=== PATIENT | male | born 1955 | race Caucasian/White ===

== ENCOUNTER 2017-08-19 05:14 | Emergency (ER) | payer SELFPAY ==
--- NOTE | 2017-08-19 05:59 | ER Document Report ---
ED General - General Chief Complaint: Wound Infection Stated Complaint: FINGER PAIN Time Seen by Provider: 08/19/17 05:58 Notes: 61-year-old male. History of diabetes. Was working on a roof with some shingles. Scratched his third digit on the left hand several days ago. Has gotten increasingly swollen and painful. States that he has been able to sleep for the last 2 nights due to the throbbing pain. Last tetanus over 7 years ago. Swelling is mostly on the dorsum of the third finger of the left nondominant hand. Hurts to bend the finger at this time. TRAVEL OUTSIDE OF THE [place] IN LAST 30 DAYS: No - HPI Onset: Last week Onset/Duration: Gradual Severity: Mild Pain Level: 4 Associated symptoms: None - Related Data Allergies/Adverse Reactions: No Known Allergies Allergy (Unverified 08/19/17 05:47) Past Medical History - General Information source: Patient - Social History Smoking Status: Never Smoker Chew tobacco use (# tins/day): No Frequency of alcohol use: Social Drug Abuse: None Lives with: Family Family History: Reviewed & Not Pertinent Patient has suicidal ideation: No Patient has homicidal ideation: No - Past Medical History Cardiac Medical History: Reports: Hx Hypercholesterolemia, Hx Hypertension Endocrine Medical History: Reports: Hx Diabetes Mellitus Type 2 Renal/ Medical History: Denies: Hx Peritoneal Dialysis Malignancy Medical History: Reports None GI Medical History: Reports: None Musculoskeltal Medical History: Reports None Past Surgical History: Reports: Hx Cardiac Catheterization - 1 stent, Hx Orthopedic Surgery - hand, knees, neck Review of Systems - Review of Systems Constitutional: Chills. denies: Fever, Malaise Cardiovascular: denies: Chest pain, Palpitations, Heart racing Respiratory: denies: Cough, Hurts to breathe, Short of breath Musculoskeletal: See HPI Skin: See HPI Physical Exam - Vital signs Vitals: Temp Pulse Resp BP Pulse Ox 97.7 F 81 18 172/85 H 99 08/19/17 05:19 08/19/17 05:19 08/19/17 05:19 08/19/17 05:19 08/19/17 05:19 Interpretation: Hypertensive - General General appearance: Appears well, Alert - Respiratory Respiratory status: No respiratory distress Chest status: Nontender Breath sounds: Normal Chest palpation: Normal - Cardiovascular Rhythm: Regular Heart sounds: Normal auscultation Murmur: No - Extremities General upper extremity: Other - The third digit on the left hand appears to have a significant paronychial infection. There is no active drainage. The digit is moderately swollen. Flexion and extension produces pain. There is some discoloration at the distal aspect of the third finger on the dorsum where the skin has broken down. General lower extremity: Normal inspection, Nontender, Normal color, Normal ROM , Normal temperature, Normal weight bearing. No: Danica's sign - Skin Skin Temperature: Warm Skin Moisture: Dry Skin Color: Normal, Other - Skin breakdown and redness noted on the third digit of the left hand Course - Re-evaluation Re-evalutation: 08/19/17 06:40 Dr. Brennan with orthopedic surgery has evaluated the hand. Does not feel this represents a tenosynovitis at this time. Recommend simple I&D in the emergency department. We will get some basic labs in the event that this gets worse based on this patient's compromised immune system with diabetes. Will have a baseline for labs and will do I&D at this time. We will give first dose of IV antibiotics and will reassess. 08/19/17 07:07 Incision and drainage is performed. No significant complications. Digital block performed. Good anesthesia was obtained. Please see procedure note - Vital Signs Vital signs: Temp Pulse Resp BP Pulse Ox 97.7 F 81 18 172/85 H 99 08/19/17 05:19 08/19/17 05:19 08/19/17 05:19 08/19/17 05:19 08/19/17 05:19 - Laboratory Result Diagrams: 08/19/17 06:45 Laboratory results interpreted by me: 08/19/17 06:45 WBC 10.8 H RBC 3.89 L Hgb 12.0 L Hct 34.0 L Lymphocytes % 10.9 L Absolute Neutrophils 8.4 H Procedures - Incision and Drainage Left Finger 3rd digit Type: Simple, Single Anesthetic type: 1% Lidocaine Blade size: 11 I&D procedure: Betadine prep applied Incision Method: Incision made by scalpel Amount/type of drainage: 3 mL of purulent discharge Notes: 08/19/17 07:05 Small incision was made at the paronychial area and a elliptical incision. Approximately 3 mL of pus was obtained. No packing was applied Discharge - Discharge Clinical Impression: Acute paronychia of finger of left hand, Paronychia of finger of left hand Condition: Good Disposition: HOME, SELF-CARE Instructions: Antibiotic Ointment Protection (OM), Tetanus Immunization Given (OM), Prophylactic Antibiotic (OM), Paronychia (OM) Prescriptions: Amox Tr/Potassium Clavulanate [Augmentin 875-125 Tablet] 1 tab PO BID 7 Days # 14 tablet Hydrocodone/Acetaminophen [Gypsum 5-325 mg Tablet] 1 tab PO QID PRN 3 Days #12 tablet PRN Reason: Referrals: LAY BRENNAN MD [ACTIVE STAFF] - Follow up as needed
[2017-08-19] MEDS ORDERED: LIDOCAINE 1% INJ-PF (10 MG/ML) 30 ML SDV INJ ONE (06:22)
[2017-08-19] MEDS ORDERED: AMPICILLIN SOD/SULBACTAM 3 GM VIAL IV ONE (06:23)
[2017-08-19] MEDS ORDERED: HYDROCODONE/ACETAMINOPHEN 5-325 MG TABLET PO ONE (06:24)
[2017-08-19] MEDS ORDERED: DIPH/PERTUSS(ACELL)/TETANUS VAC/PF 0.5 ML SYR (>=10YO) IM ONE (06:41)
[2017-08-19 06:57] LABS: ABSOLUTE EOSINOPHILS # (AUTO) 0.2 10^3/uL (0.0-0.6); ABSOLUTE LYMPHOCYTES (AUTO) 1.2 10^3/uL (0.5-4.7); ABSOLUTE MONOCYTES (AUTO) 0.9 10^3/uL (0.1-1.4); ABSOLUTE NEUT (AUTO) 8.4 10^3/uL (1.7-8.2); BASOPHILS % (AUTO) 0.4 % (0-2); LYMPHOCYTES % (AUTO) 10.9 % (13-45); MEAN CORPUSCULAR HEMOGLOBIN 30.8 pg (27.0-33.4); MEAN CORPUSCULAR HGB CONC 35.3 g/dL (32.0-36.0); MEAN CORPUSCULAR VOLUME 87 fl (80-97); MONOCYTES % (AUTO) 8.7 % (3-13); PLATELET COUNT 212 10^3/uL (150-450); RED BLOOD COUNT 3.89 10^6/uL (4.35-5.55); RED CELL DISTRIBUTION WIDTH 13.4 % (11.5-14.0); TOTAL CELLS COUNTED % (AUTO) 100 %; WHITE BLOOD COUNT 10.8 10^3/uL (4.0-10.5)
--- NOTE | 2017-08-19 07:00 | PDOC CONSULTATION ---
Consultation Consult Date: 08/19/17 Consult reason:: Left long finger abscess History of Present Illness History of Present Illness: CASTILLO LYNN is a 61 year old male who presents with a left long finger abscess over the dorsum of the distal phalanx that he attributes to putting on reymundo shingles. Past Medical History Cardiac Medical History: Reports: Hyperlipidema, Hypertension Endocrine Medical History: Reports: Diabetes Mellitus Type 2 Malignancy Medical History: Reports: None GI Medical History: Reports: None Musculoskeltal Medical History: Reports: None Past Surgical History Past Surgical History: Reports: Cardiac Catheterization - 1 stent, Orthopedic Surgery - hand, knees, neck Social History Lives with: Family Smoking Status: Never Smoker Family History Family History: Reviewed & Not Pertinent Parental Family History Reviewed: No Children Family History Reviewed: No Sibling(s) Family History Reviewed.: No Medication/Allergy Allergies/Adverse Reactions: No Known Allergies Allergy (Unverified 08/19/17 05:47) Review of Systems All systems: as per H Physical Exam Vital Signs: Temp Pulse Resp BP Pulse Ox 36.5 C 81 18 172/85 H 99 08/19/17 05:19 08/19/17 05:19 08/19/17 05:19 08/19/17 05:19 08/19/17 05:19 Intake & Output 08/17/17 08/18/17 08/19/17 06:59 06:59 06:59 Weight 104.326 kg General appearance: PRESENT: no acute distress Head exam: PRESENT: normocephalic Respiratory exam: PRESENT: unlabored Cardiovascular exam: PRESENT: RRR Musculoskeletal exam: PRESENT: other - Left long finger demonstrates a classic paronychia with some epidermal lysis. There is brisk capillary refill. Sensory examination is intact. Neurological exam: PRESENT: alert, awake, oriented to person, oriented to place , oriented to time, oriented to situation. ABSENT: motor sensory deficit Psychiatric exam: PRESENT: appropriate affect, normal mood. ABSENT: homicidal ideation, suicidal ideation Skin exam: PRESENT: dry, intact, warm. ABSENT: cyanosis, rash Results Status: Imported from PACS Assessment & Plan - Diagnosis (1) Paronychia of finger of left hand Is this a current diagnosis for this admission?: Yes Plan: Patient will undergo an I&D in the emergency room under local block, be discharged on oral antibiotics, and follow up with me in the office - Time Time Spent: 50 to 70 Minutes Anticipated discharge: Home
[2017-08-19 07:58] VITALS: BP 135/69
--- NOTE | 2017-08-19 08:05 | RADIOLOGY REPORT (SQ) ---
EXAM DESCRIPTION: FINGER LEFT COMPLETED DATE/TIME: 08/19/2017 5:44 am REASON FOR STUDY: posible splinter COMPARISON: None. NUMBER OF VIEWS: Three views. TECHNIQUE: AP, lateral, and oblique images acquired of the left third finger. LIMITATIONS: None. FINDINGS: MINERALIZATION: Normal. BONES: No acute fracture or dislocation. No worrisome bone lesions. No significant osteophytes. JOINTS: No erosions. No arpan-articular osteopenia. No chondrocalcinosis. SOFT TISSUES: Soft tissue swelling. No foreign body. OTHER: No other significant finding. IMPRESSION: NEGATIVE RADIOGRAPHS OF THE LEFT THIRD FINGER. NO EXPLANATION FOR PAIN. COMMENT: SITE OF TRAUMA/COMPLAINT MARKED/STAMP COMPLETED: No TECHNICAL DOCUMENTATION: JOB ID: [id number] [employer]- All Rights Reserved
== END 2017-08-19 08:09 | disposition home or self-care (01) ==
LOC: ER 05:14
PROC: 0H9QXZZ Drainage of Finger Nail, External Approach (ICD-10-PCS; principal; 2017-08-19)
DX: L03.012 Cellulitis of left finger (principal); E11.9 Type 2 diabetes mellitus without complications; M79.89 Other specified soft tissue disorders; W22.8XXA Striking against or struck by other objects, initial encounter
CPT/HCPCS: 99284; 90471; 96365; 36415; 87070; 87205; 85025; 86140; 87077; 87186; 73140; 90715; 10060; J0295; J3490

== ENCOUNTER 2018-05-22 10:41 | Emergency (ER) | payer OTHER ==
[2018-05-22] MEDS ORDERED: ACETAMINOPHEN 325 MG TABLET PO ONE (11:27)
--- NOTE | 2018-05-22 11:27 | ER Document Report ---
ED Extremity Problem, Lower - General Chief Complaint: Knee Pain Stated Complaint: KNEE/FOOT PAIN Time Seen by Provider: 05/22/18 11:01 Information source: Patient Notes: 62-year-old male presents to ED for complaint of left knee pain since Friday and right foot pain. He states he had a knee replacement bilaterally more than 15 years ago he just started yesterday he cannot bend the left knee at all. I can hold his knee up in the air and his foot does not go down. He says it will not go down. She is alert and oriented respirations regular and unlabored speaking and can walk with a limp. He states that yesterday he cannot walk at all until he took 800 of ibuprofen from a friend. TRAVEL OUTSIDE OF THE [place] IN LAST 30 DAYS: No - HPI Patient complains to provider of: Pain, Swelling Location: Foot, Knee - Left right Occurred: Other - Friday Onset/Duration: Gradual, Persistent Quality of pain: Achy, Pressure, Throbbing Severity: Moderate Pain Level: 4 Recent injury: No Associated symptoms: Painful ambulation Exacerbated by: Movement, Walking Relieved by: Other - Ibuprofen - Related Data Allergies/Adverse Reactions: No Known Allergies Allergy (Unverified 08/19/17 05:47) Past Medical History - General Information source: Patient - Social History Smoking Status: Never Smoker Chew tobacco use (# tins/day): No Frequency of alcohol use: Social Drug Abuse: None Occupation: retired Lives with: Family Family History: Reviewed & Not Pertinent Patient has suicidal ideation: No Patient has homicidal ideation: No - Past Medical History Cardiac Medical History: Reports: Hx Coronary Artery Disease, Hx Hypercholesterolemia, Hx Hypertension Pulmonary Medical History: Reports: None EENT Medical History: Reports: None Endocrine Medical History: Reports: Hx Diabetes Mellitus Type 2 Renal/ Medical History: Reports: None Malignancy Medical History: Reports None GI Medical History: Reports: None Musculoskeletal Medical History: Reports Hx Arthritis, Reports Hx Musculoskeletal Deformity, Reports Hx Musculoskeletal Trauma Skin Medical History: Reports None Psychiatric Medical History: Reports: None Traumatic Medical History: Reports: Hx Fractures - right hand Infectious Medical History: Reports: None Past Surgical History: Reports: Hx Cardiac Catheterization, Hx Coronary Stent - x1, Hx Orthopedic Surgery - hand right 17 , bilat knee replacement, neck disc - Immunizations Immunizations up to date: Yes Review of Systems - Review of Systems Notes: REVIEW OF SYSTEMS: CONSTITUTIONAL : Denies fever, chills, or sweats. Denies recent illness. EENT: Denies eye, ear, throat, or mouth pain or symptoms. Denies nasal or sinus congestion or discharge. Denies throat, tongue, or mouth swelling or difficulty swallowing. CARDIOVASCULAR: Denies chest pain. Denies palpitations or racing or irregular heart beat. Denies ankle edema. RESPIRATORY: Denies cough, cold, or chest congestion. Denies shortness of breath, difficulty breathing, or wheezing. GASTROINTESTINAL: Denies abdominal pain or distention. Denies nausea, vomiting , or diarrhea. Denies blood in vomitus, stools, or per rectum. Denies black, tarry stools. Denies constipation. GENITOURINARY: Denies difficulty urinating, painful urination, burning, frequency, blood in urine, or discharge. MUSCULOSKELETAL: Denies back or neck pain or stiffness. Complains of pain and swelling to the left knee and right foot since Friday improved with ibuprofen. SKIN: Denies rash, lesions or sores. HEMATOLOGIC : Denies easy bruising or bleeding. LYMPHATIC: Denies swollen, enlarged glands. NEUROLOGICAL: Denies confusion or altered mental status. Denies passing out or loss of consciousness. Denies dizziness or lightheadedness. Denies headache. Denies weakness or paralysis or loss of use of either side. Denies problems with gait or speech. Denies sensory loss, numbness, or tingling. Denies seizures. PSYCHIATRIC: Denies anxiety or stress. Denies depression, suicidal ideation, or homicidal ideation. ALL OTHER SYSTEMS REVIEWED AND NEGATIVE. Dictation was performed using [employer] voice recognition software PHYSICAL EXAMINATION: GENERAL: Well-appearing, well-nourished and in no acute distress. HEAD: Atraumatic, normocephalic. EYES: Pupils equal round and reactive to light, extraocular movements intact, sclera anicteric, conjunctiva are normal. ENT: Nares patent, oropharynx clear without exudates. Moist mucous membranes. NECK: Normal range of motion, supple without lymphadenopathy LUNGS: Breath sounds clear to auscultation bilaterally and equal. No wheezes rales or rhonchi. HEART: Regular rate and rhythm without murmurs ABDOMEN: Soft, nontender, nondistended abdomen. No guarding, no rebound. No masses appreciated. Musculoskeletal: Unable to bend his left knee. When I hold his knee up he still is unable to bend it. He has swelling to the light knee and right foot. Left knee and right foot are both very tender to palpation. Denies any injuries. NEUROLOGICAL: Cranial nerves grossly intact. Normal speech, normal gait. Normal sensory, motor exams PSYCH: Normal mood, normal affect. SKIN: Warm, Dry, normal turgor, no rashes or lesions noted. 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 Patient was treated with a knee immobilizer. Patient stated he would call his database marketing specialist on Friday. - Vital Signs Vital signs: Temp Pulse Resp BP Pulse Ox 97.4 F 61 15 135/77 H 99 05/22/18 12:50 05/22/18 12:50 05/22/18 12:50 05/22/18 12:50 05/22/18 12:50 - Diagnostic Test Radiology reviewed: Image reviewed, Reports reviewed Procedures - Immobilization Left Knee Time completed: 12:45 Pre-Proc Neuro Vasc Exam: Normal Immobilizer type: Knee immobilizer Performed by: PCT Post-Proc Neuro Vasc Exam: Normal Alignment checked and good: Yes Discharge - Discharge Clinical Impression: Pain and swelling of left knee, Arthralgia of right foot, Arthritis of right foot Condition: Stable Disposition: HOME, SELF-CARE Additional Instructions: Arthritis Your symptoms are due to arthritis. Arthritis is an inflammation of the joints. There are many types -- osteoarthritis (due to "wear and tear"), auto- immmune arthritis (such as rheumatoid, lupus, Nirmala's, and others), and crystal -induced arthritis (such as gout and pseudogout). The physician's examination, combined with laboratory tests, will determine the cause of your arthritis. All types of arthritis are treated with antiinflammatory medications. Other medication may be required for special types of arthritis, or if your problem does not respond to the antiinflammatory medicine. Local warmth may be helpful. Move the involved joints through the full range of motion daily. Mild exercise is usually still possible for most persons with arthritis (ask your physician). Swimming provides good exercise without damaging the joints. Contact the physician if you are worsening in any way. I have given you a copy of the x-rays of your left knee right ankle and foot. The x-rays show arthritis and degenerative changes to your right foot and ankle and a lot of calcification above and below the knee replacement on your left knee. These both need to be followed up with orthopedics. I have given you a prescription for ibuprofen but I do not want you to take it more than once a day as you have elevated blood pressure and this can make your blood pressure get higher. Please follow-up with your primary doctor to ensure that he when she did take the ibuprofen as it can elevate your blood pressure. Of also recommended that you take acetaminophen arthritis 8-hour with the ibuprofen in the morning to help you with your pain. Elevate the knee and the foot when you are not up walking as this will reduce the swelling. KNEE IMMOBILIZING SPLINT: The knee immobilizing splint will protect the injury while healing begins. This type of splint does not allow the knee to bend at all. No running or sports will be possible. If the splint allows painfree walking, it's giving adequate protection. If there is still significant pain, crutches may be needed as well. Don't do anything that hurts. Adjusted the splint, if necessary. The stiffeners on the sides are attached with Velcro, so they can be easily moved to adjust for thigh and calf size. If you need help with these adjustments, come back. You will lose muscle strength in the thigh while using this splint. The doctor will advise you if it's safe to do isometric knee exercises while you use it. ICE & ELEVATION: Or warm packs if that feels better Apply ice packs frequently against the painful area. Many different schedules are recommended, such as "20 minutes on, 20 minutes off" or "one hour ice, two hours rest." If you need to work, you may need to go longer between ice treatments. You should plan to have the area ice packed AT LEAST one- fourth of the time. The ice should be applied over the wrap, tape, or splint, or over a layer of cloth -- not directly against the skin. Some ice bags have a built-in cloth and can be put directly on the skin. Your injured part should be elevated as much as possible over the next 48 hours. Try to keep the injury above the level of the heart. Avoid use of the injured area. Elevation and rest will decrease the swelling. FOLLOW-UP CARE: If you have been referred to a physician for follow-up care, call the physician s office for an appointment as you were instructed or within the next two days. If you experience worsening or a significant change in your symptoms, notify the physician immediately or return to the Emergency Department at any time for re-evaluation. Prescriptions: Ibuprofen [Motrin 800 mg Tablet] 800 mg PO QAM #20 tablet Forms: Elevated Blood Pressure Referrals: [facility] [Provider Group] - Follow up as needed
--- NOTE | 2018-05-22 12:13 | RADIOLOGY REPORT (SQ) ---
EXAM DESCRIPTION: ANKLE RIGHT COMPLETE COMPLETED DATE/TIME: 05/22/2018 12:04 pm REASON FOR STUDY: pain swelling does not remember injury COMPARISON: None. NUMBER OF VIEWS: Three views. TECHNIQUE: AP, lateral, and oblique without weight bearing radiographic images acquired of the right ankle. LIMITATIONS: None. FINDINGS: MINERALIZATION: Normal. BONES: No acute fracture or dislocation. No worrisome bone lesions. No significant osteophytes. JOINTS: No effusions. SOFT TISSUES: No soft tissue swelling. No foreign body. OTHER: No other significant finding. IMPRESSION: NO SIGNIFICANT FINDING IN THE RIGHT ANKLE. NO EXPLANATION FOR PAIN. TECHNICAL DOCUMENTATION: JOB ID: [id number] [employer]- All Rights Reserved Reading location - IP/workstation name: [email or web address]
--- NOTE | 2018-05-22 12:14 | RADIOLOGY REPORT (SQ) ---
EXAM DESCRIPTION: FOOT RIGHT COMPLETE COMPLETED DATE/TIME: 05/22/2018 12:04 pm REASON FOR STUDY: pain swelling does not remember injury COMPARISON: None. NUMBER OF VIEWS: Three views. TECHNIQUE: AP, lateral and oblique without weight bearing radiographic images acquired of the right foot. LIMITATIONS: None. FINDINGS: MINERALIZATION: Normal. BONES: No acute fracture or dislocation. No worrisome bone lesions. Plantar calcaneal spur. Mild mila lux valgus and bunion deformity of the 1st toe. JOINTS: No erosions. No arpan-articular osteopenia. No chondrocalcinosis. SOFT TISSUES: No swelling. No calcifications. OTHER: No other significant finding. IMPRESSION: HEEL SPUR. CHRONIC CHANGES IN THE 1ST TOE. NO ACUTE FINDINGS. TECHNICAL DOCUMENTATION: JOB ID: [id number] [employer]- All Rights Reserved Reading location - IP/workstation name: [email or web address]
--- NOTE | 2018-05-22 12:19 | RADIOLOGY REPORT (SQ) ---
EXAM DESCRIPTION: KNEE LEFT 4 VIEW COMPLETED DATE/TIME: 05/22/2018 12:04 pm REASON FOR STUDY: previous replacement, swelling pain dec rom COMPARISON: None. NUMBER OF VIEWS: Four views. TECHNIQUE: AP, lateral, and both oblique radiographic images acquired of the left knee. LIMITATIONS: None. FINDINGS: MINERALIZATION: Normal. BONES: Total knee arthroplasty in good position. No acute osseous abnormality. JOINT: There is a small joint effusion. SOFT TISSUES: There are extensive soft tissue calcifications both above and below the patella and pos teriorly in the OTHER: No other significant finding. IMPRESSION: Small joint effusion. 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 Cannot exclude dystrophic calcifications. Total knee arthroplasty in good p osition. TECHNICAL DOCUMENTATION: JOB ID: [id number] [employer]- All Rights Reserved Reading location - IP/workstation name: [email or web address]
[2018-05-22 12:52] VITALS: BP 135/77
== END 2018-05-22 12:52 | disposition home or self-care (01) ==
LOC: ER 10:41
DX: M25.562 Pain in left knee (principal); M79.89 Other specified soft tissue disorders; M25.571 Pain in right ankle and joints of right foot; M13.871 Other specified arthritis, right ankle and foot; M79.671 Pain in right foot; I25.10 Atherosclerotic heart disease of native coronary artery without angina pectoris; I10 Essential (primary) hypertension; E11.9 Type 2 diabetes mellitus without complications
CPT/HCPCS: 99283; 73610; 73630; 73564; L1830